=== PATIENT | female | born 1960 | race Caucasian/White ===

== ENCOUNTER 2018-06-13 11:28 | Inpatient (IN) | payer MEDICARE, OTHER ==
[2018-06-13] MEDS ORDERED: ONDANSETRON 4 MG INJ IV ×2 (12:00→16:30)
[2018-06-13] MEDS ORDERED: ACETAMINOPHEN 325 MG TAB PO ×2 (12:00→16:30)
[2018-06-13 12:32] LABS: ADD MAN DIFF? NO
[2018-06-13] MEDS: LEVETIRACETAM 1000 MG (PMX) 100 ML IVPB (12:32)
[2018-06-13 12:39] LABS: WHITE BLOOD COUNT 4.2 10^3/ul (4.8-10.8)
[2018-06-13 12:39] LABS: BASOPHIL # 0.1 10^3/ul (0.0-0.1); BASOPHILS % 1.2 % (0.0-2.0); HEMATOCRIT 43.9 % (37.0-47.0); HEMOGLOBIN 14.8 g/dl (12.0-16.0); LYMPHOCYTES # 1.3 10^3/ul (0.8-2.9); LYMPHOCYTES % 31.1 % (15.0-51.0); MEAN CORPUSCULAR HEMOGLOBIN 30.3 pg (29.0-33.0); MEAN CORPUSCULAR HGB CONC 33.7 g/dl (32.0-37.0); MEAN CORPUSCULAR VOLUME 89.8 fl (82.0-101.0); MEAN PLATELET VOLUME 11.4 fl (7.4-10.4); MONOCYTE # 0.2 10^3/ul (0.3-0.9); MONOCYTES % 4.8 % (0.0-11.0); NEUTROPHIL # 2.6 10^3/ul (1.6-7.5); NEUTROPHILS % 61.4 % (39.0-77.0); PLATELET COUNT 183 10^3/UL (140-415); RED BLOOD COUNT 4.89 10^6/ul (4.20-5.40); RED CELL DISTRIBUTION WIDTH 14.5 % (11.5-14.5)
[2018-06-13 12:59] LABS: ANION GAP 8 (5-13); BLOOD UREA NITROGEN 15 mg/dl (7-20); CALCIUM 9.2 mg/dl (8.4-10.2); CARBON DIOXIDE 27 mmol/L (21-31); CHLORIDE 108 mmol/L (97-110); CREATININE 0.68 mg/dl (0.44-1.00); Estimated GFR > 60 mL/min (>60); GLUCOSE 96 mg/dl (70-220); POTASSIUM 4.3 mmol/L (3.5-5.1); SODIUM 143 mmol/L (135-144)
[2018-06-13] MEDS ORDERED: BISACODYL (EC) 5 MG TAB PO (16:30)
[2018-06-13] MEDS ORDERED: clonAZEPAM 0.5 MG TAB PO (16:30)
[2018-06-13] MEDS ORDERED: DOCUSATE SODIUM 100 MG CAP PO (16:30)
[2018-06-13] MEDS: FAMOTIDINE 20 MG TAB PO (20:31)
[2018-06-13] MEDS: ATORVASTATIN 10 MG TAB PO (20:31)
[2018-06-13] MEDS: LEVETIRACETAM 750 MG TAB PO (22:48)
[2018-06-13] MEDS: LACOSAMIDE (100 MG/10 ML PO SYR) PO (22:48)
[2018-06-14 07:23] LABS: ADD MAN DIFF? NO
[2018-06-14 07:25] LABS: WHITE BLOOD COUNT 6.5 10^3/ul (4.8-10.8)
[2018-06-14 07:26] LABS: BASOPHIL # 0.1 10^3/ul (0.0-0.1); BASOPHILS % 1.2 % (0.0-2.0); EOSINOPHILS # 0.1 10^3/ul (0.0-0.5); EOSINOPHILS % 0.9 % (0.0-7.0); HEMATOCRIT 44.3 % (37.0-47.0); HEMOGLOBIN 14.5 g/dl (12.0-16.0); LYMPHOCYTES # 1.6 10^3/ul (0.8-2.9); MEAN CORPUSCULAR HEMOGLOBIN 29.7 pg (29.0-33.0); MEAN CORPUSCULAR HGB CONC 32.7 g/dl (32.0-37.0); MEAN CORPUSCULAR VOLUME 90.8 fl (82.0-101.0); MEAN PLATELET VOLUME 11.5 fl (7.4-10.4); MONOCYTE # 0.4 10^3/ul (0.3-0.9); MONOCYTES % 6.3 % (0.0-11.0); NEUTROPHIL # 4.4 10^3/ul (1.6-7.5); NEUTROPHILS % 67.3 % (39.0-77.0); NUCLEATED RED BLOOD CELLS% 0.5 /100WBC (0.0-0.0); PLATELET COUNT 182 10^3/UL (140-415); RED BLOOD COUNT 4.88 10^6/ul (4.20-5.40); RED CELL DISTRIBUTION WIDTH 14.3 % (11.5-14.5)
[2018-06-14 07:52] LABS: ALANINE AMINOTRANSFERASE 23 IU/L (13-69); ALBUMIN 3.6 g/dl (3.3-4.9); ALBUMIN/GLOBULIN RATIO 0.94; ALKALINE PHOSPHATASE 129 IU/L (42-121); ANION GAP 7 (5-13); ASPARTATE AMINO TRANSFERASE 23 IU/L (15-46); BILIRUBIN,INDIRECT 0.7 mg/dl (0-1.1); BILIRUBIN,TOTAL 0.7 mg/dl (0.2-1.3); BLOOD UREA NITROGEN 10 mg/dl (7-20); CALCIUM 8.9 mg/dl (8.4-10.2); CARBON DIOXIDE 27 mmol/L (21-31); CHLORIDE 109 mmol/L (97-110); CREATININE 0.62 mg/dl (0.44-1.00); Estimated GFR > 60 mL/min (>60); GLUCOSE 92 mg/dl (70-220); SODIUM 143 mmol/L (135-144); TOTAL PROTEIN 7.4 g/dl (6.1-8.1)
[2018-06-14 08:03] LABS: POTASSIUM 3.8 mmol/L (3.5-5.1)
[2018-06-14] MEDS: clonAZEPAM 0.5 MG TAB PO (09:09)
[2018-06-14] MEDS: LEVETIRACETAM 750 MG TAB PO ×2 (09:09→21:51)
[2018-06-14] MEDS: FAMOTIDINE 20 MG TAB PO ×2 (09:09→21:50)
[2018-06-14] MEDS: ENOXAPARIN 30 MG/0.3 ML SYG SC (09:11)
[2018-06-14] MEDS: LACOSAMIDE (100 MG/10 ML PO SYR) PO ×2 (09:12→21:50)
[2018-06-14] MEDS: NYSTATIN 30 GM POWDER BTL TOP ×2 (14:24→21:51)
[2018-06-14] MEDS: ATORVASTATIN 10 MG TAB PO (21:50)
[2018-06-15] MEDS: FAMOTIDINE 20 MG TAB PO ×2 (08:53→22:03)
[2018-06-15] MEDS: LEVETIRACETAM 750 MG TAB PO ×2 (08:53→22:03)
[2018-06-15] MEDS: LACOSAMIDE (100 MG/10 ML PO SYR) PO ×2 (08:54→22:03)
[2018-06-15] MEDS: ENOXAPARIN 30 MG/0.3 ML SYG SC (08:54)
[2018-06-15] MEDS: NYSTATIN 30 GM POWDER BTL TOP ×2 (08:55→22:04)
[2018-06-15] MEDS: ATORVASTATIN 10 MG TAB PO (22:03)
[2018-06-15] MEDS: clonAZEPAM 0.5 MG TAB PO (22:03)
[2018-06-16] MEDS: LEVETIRACETAM 750 MG TAB PO ×2 (09:51→20:25)
[2018-06-16] MEDS: FAMOTIDINE 20 MG TAB PO ×2 (09:51→20:26)
[2018-06-16] MEDS: LACOSAMIDE (100 MG/10 ML PO SYR) PO ×2 (09:51→20:26)
[2018-06-16] MEDS: ENOXAPARIN 30 MG/0.3 ML SYG SC (09:52)
[2018-06-16] MEDS: NYSTATIN 30 GM POWDER BTL TOP ×2 (09:56→20:27)
[2018-06-16] MEDS: ATORVASTATIN 10 MG TAB PO (20:26)
[2018-06-16] MEDS: clonAZEPAM 0.5 MG TAB PO (20:26)
[2018-06-17] MEDS: LEVETIRACETAM 750 MG TAB PO ×2 (09:02→21:00)
[2018-06-17] MEDS: NYSTATIN 30 GM POWDER BTL TOP ×2 (09:03→21:01)
[2018-06-17] MEDS: LACOSAMIDE (100 MG/10 ML PO SYR) PO ×2 (09:03→21:00)
[2018-06-17] MEDS: FAMOTIDINE 20 MG TAB PO ×2 (09:03→21:00)
[2018-06-17] MEDS: ENOXAPARIN 30 MG/0.3 ML SYG SC (09:05)
[2018-06-17] MEDS: clonAZEPAM 0.5 MG TAB PO (20:59)
[2018-06-17] MEDS: ATORVASTATIN 10 MG TAB PO (20:59)
[2018-06-18] MEDS: FAMOTIDINE 20 MG TAB PO ×2 (08:51→21:10)
[2018-06-18] MEDS: LACOSAMIDE (100 MG/10 ML PO SYR) PO ×2 (08:51→21:10)
[2018-06-18] MEDS: LEVETIRACETAM 750 MG TAB PO (08:51)
[2018-06-18] MEDS: ENOXAPARIN 30 MG/0.3 ML SYG SC (08:52)
[2018-06-18] MEDS: NYSTATIN 30 GM POWDER BTL TOP ×2 (08:52→21:12)
[2018-06-18] MEDS: ATORVASTATIN 10 MG TAB PO (21:09)
[2018-06-18] MEDS: clonAZEPAM 0.5 MG TAB PO (21:09)
[2018-06-18] MEDS: LEVETIRACETAM (100 MG/ML) 5ML CUP PO (21:22)
[2018-06-19] MEDS: LACOSAMIDE (100 MG/10 ML PO SYR) PO (09:03)
[2018-06-19] MEDS: LEVETIRACETAM (100 MG/ML) 5ML CUP PO (09:03)
[2018-06-19] MEDS: ENOXAPARIN 30 MG/0.3 ML SYG SC (09:04)
[2018-06-19] MEDS: NYSTATIN 30 GM POWDER BTL TOP (09:05)
[2018-06-19] MEDS: FAMOTIDINE 20 MG TAB PO (09:14)
== END 2018-06-19 19:53 | DRG 100 ==
LOC: E/R 11:28 → PP2 11:42
DX: G40.909 Epilepsy, unspecified, not intractable, without status epilepticus (principal); R53.2 Functional quadriplegia; Q90.9 Down syndrome, unspecified; F25.9 Schizoaffective disorder, unspecified; F41.9 Anxiety disorder, unspecified; E78.5 Hyperlipidemia, unspecified
CPT/HCPCS: 36415; 70450; 80048; 80053; 83735; 84443; 85025; 92610; 96374; 99285-25